=== PATIENT | male | born 1990 | race Caucasian/White ===

== ENCOUNTER → 2020-11-28 | Outpatient (CLI) | payer OTHER | END | disposition home or self-care (01) | LOC: STAR 08:58 | PROVIDERS: ATTEND Otolaryngology | DX: Z20.822 Contact with and (suspected) exposure to COVID-19 (principal) | CPT/HCPCS: U0003; U0005 ==

== ENCOUNTER 2020-12-04 12:45 | Day surgery (SDC) | payer OTHER ==
[~2020-12-04] VITALS: Ht 182.9 cm; Wt 75.8 kg
[~2020-12-04 12:45] MED LIST: BACITRACIN OINT 500U/GM, 15 GM ONE; EPINEPHRINE 1 MG/ML, 1ML ONE; EPINEPHRINE TOPICAL SOLN 1 MG/ML, 30ML ONE; FLUORESCEIN SODIUM 500 MG/5 ML ONE; LIDOCAINE/PF 1%, 30ML ONE; OXYMETAZOLINE NASAL SPRAY 0.05%,30ML ONE
[2020-12-04 13:40] VITALS: BP 112/76
[2020-12-04] MEDS ORDERED: CHLORHEXIDINE 15 ML UDC ONE (13:44)
[2020-12-04] MEDS ORDERED: CHLORHEXIDINE 15 ML UDC PO ONE (14:00)
[2020-12-04] MEDS ORDERED: LACTATED RINGERS 1,000 ML IV SCH (14:00)
[2020-12-04] MEDS ORDERED: MIDAZOLAM 1 MG/ML, 2ML ONE (14:09)
[2020-12-04] MEDS ORDERED: FENTANYL PF 250 MCG/5ML ONE (14:09)
[2020-12-04] MEDS ORDERED: PROPOFOL 10 MG/ML, 20ML ONE (14:16)
[2020-12-04] MEDS ORDERED: CEFAZOLIN 1,000 MG ONE (14:16)
[2020-12-04] MEDS ORDERED: SUCCINYLCHOLINE 20 MG/ML, 10ML ONE (14:16)
[2020-12-04] MEDS ORDERED: ONDANSETRON 2MG/ML, 2ML ONE (14:16)
[2020-12-04] MEDS ORDERED: DEXAMETHASONE 4 MG/ML, 1ML ONE (14:16)
[2020-12-04] MEDS ORDERED: BUPIVACAINE/PF 0.25% ONE (14:58)
[2020-12-04] MEDS ORDERED: EPINEPHRINE 1 MG/ML, 1ML ONE (14:58)
[2020-12-04] MEDS ORDERED: MEPERIDINE/PF 25MG/0.5ML IVPush PRN (15:00)
[2020-12-04] MEDS ORDERED: PROMETHAZINE 25 MG/ML, 1ML IVPush PRN (15:00)
[2020-12-04] MEDS ORDERED: ONDANSETRON 2MG/ML, 2ML IVPush PRN (15:00)
[2020-12-04] MEDS ORDERED: OXYcodone 5 MG/5 ML ORAL.SOL UDC PO PRN (15:00)
[2020-12-04] MEDS ORDERED: ACETAMINOPHEN 325 MG TABLET PO PRN (15:00)
[2020-12-04] MEDS ORDERED: MEPERIDINE/PF 25MG/ML,1ML ONE (16:31)
[2020-12-04] MEDS ORDERED: FENTANYL PF 100 MCG/2ML ONE ×2 (16:31→17:21)
[2020-12-04] MEDS ORDERED: LORazepam 2 MG/ML, 1ML ONE (16:34)
[2020-12-04] MEDS: FENTANYL PF 100 MCG/2ML IV PRN ×4 (16:38→17:38)
[2020-12-04] MEDS ORDERED: HYDROmorphone 1 MG/ML, 1ML INJ ONE ×2 (16:38→17:24)
[2020-12-04] MEDS: HYDROmorphone 1 MG/ML, 1ML INJ IVPush PRN ×4 (16:43→17:27)
[2020-12-04] MEDS ORDERED: OXYcodone 5 MG/5 ML ORAL.SOL UDC ONE (16:58)
[2020-12-04] MEDS ORDERED: ACETAMINOPHEN 650 MG/20.3 ML UDC ONE (16:58)
[2020-12-04] MEDS ORDERED: DIAZEPAM 5 MG/ML, 2ML ONE (17:14)
[2020-12-04] MEDS: DIAZEPAM 5 MG/ML, 2ML IVPush PRN ×2 (17:22→17:32)
== END 2020-12-04 19:50 | disposition home or self-care (01) ==
LOC: SDC 12:45 → EDSTATUS 14:30 → SDC 19:50
PROVIDERS: ATTEND Otolaryngology
DX: T84.84XA Pain due to internal orthopedic prosthetic devices, implants and grafts, initial encounter (principal); J32.0 Chronic maxillary sinusitis; Z79.899 Other long term (current) drug therapy; Y83.8 Other surgical procedures as the cause of abnormal reaction of the patient, or of later complication, without mention of misadventure at the time of the procedure
CPT/HCPCS: 20680; 31256; 88304; J0171; J0330; J0690; J1100; J1170; J2175; J2250; J2405; J2704; J3010; J3360; J7120

== ENCOUNTER 2020-12-04 20:32 | Emergency (ER) | payer OTHER ==
[~2020-12-04] VITALS: Ht 182.9 cm; Wt 84.6 kg
[2020-12-04] MEDS ORDERED: LORazepam 2 MG/ML, 1ML ONE (20:34)
--- NOTE | 2020-12-04 20:52 | NUR ---
Patient presents to ER as a "code 250." Patient was d/c from this hospital within the last hour after having sinus surgery. Same day surgery RN accompanied patient to ER stating they received a call from patient's girlfriend stating patient vomited dark red blood on their way home so they turned around to come back. BS 127. IV initiated and ativan admin. Patient became AAOx4, GCS 15. States he was d/c and gone from the hospital <20 minutes; he vomited dark red blood approx [address] and became lethargic.
--- NOTE | 2020-12-04 20:52 | NUR ---
JAMES RUIZ ([facility]) [phone]
[2020-12-04] MEDS ORDERED: LORazepam 2 MG/ML, 1ML IVPush ONE (21:00)
[2020-12-04 21:06] LABS: BASOPHILS % (AUTO) 0 % (0-1); EOSINOPHILS % (AUTO) 0 % (1-7); LYMPHOCYTES % (AUTO) 8 % (22-44); MEAN CORPUSCULAR HEMOGLOBIN 29.8 pg (27.5-34.5); MEAN CORPUSCULAR HGB CONC 32.9 g/dL (33.2-36.2); MEAN PLATELET VOLUME 9.1 fL (7.4-10.4); MONOCYTES % (AUTO) 1 % (2-9); NEUTROPHILS % (AUTO) 90 % (42-75); PLATELET COUNT 262 x10^3/uL (130-400); RED BLOOD COUNT 5.26 x10^6/uL (4.38-5.82); RED CELL DISTRIBUTION WIDTH 13.2 % (9.4-14.8)
--- NOTE | 2020-12-04 21:09 | NUR ---
REPORT RECEIVED, POC DISCUSSED, CARE ASSUMED. PT RESTING QUIETLY, S.O AT BEDSIDE. LAB RESULTS PENDING.
[2020-12-04 21:11] LABS: ALANINE AMINOTRANSFERASE 19 U/L (12-78); ALBUMIN 4.4 g/dL (3.4-5.0); ANION GAP 9 mmol/L (5-15); CALCIUM 9.5 mg/dL (8.5-10.1); CHLORIDE 104 mmol/L (98-107); CREATININE 1.26 mg/dL (0.7-1.3)
--- NOTE | 2020-12-04 21:12 | NUR ---
Report given to ABRAHAM Harry. Patient care transferred.
--- NOTE | 2020-12-04 21:14 | NUR ---
O2 ON AT 3LM NC.
[2020-12-04 21:15] LABS: ALKALINE PHOSPHATASE 45 U/L (45-117); BILIRUBIN,TOTAL 0.9 mg/dL (0.2-1.0); TOTAL PROTEIN 7.8 g/dL (6.4-8.2)
--- NOTE | 2020-12-04 22:11 | NUR ---
PT DC'D HOME WITH RX X 1 AND UNDERSTANDING OF INSTRUCTIONS. PT TO DC DESK BY W/C ACCOMPANIED BY .SO.
[2020-12-04 22:13] VITALS: BP 102/45
== END 2020-12-04 22:19 | disposition home or self-care (01) ==
LOC: ED 21:10
DX: S05.12XA Contusion of eyeball and orbital tissues, left eye, initial encounter (principal); F41.0 Panic disorder [episodic paroxysmal anxiety]; R11.10 Vomiting, unspecified; Z87.891 Personal history of nicotine dependence; X58.XXXA Exposure to other specified factors, initial encounter; Y93.89 Activity, other specified; Y92.89 Other specified places as the place of occurrence of the external cause; Y99.8 Other external cause status
CPT/HCPCS: 36415; 80053; 85025; 96374; 99283; J2060; 96372

== ENCOUNTER 2020-12-11 07:32 | Day surgery (SDC) | payer OTHER ==
[~2020-12-11] VITALS: Ht 182.9 cm; Wt 75.9 kg
[~2020-12-11 07:32] MED LIST changes: -BACITRACIN OINT 500U/GM, 15 GM ONE; -EPINEPHRINE 1 MG/ML, 1ML ONE; -EPINEPHRINE TOPICAL SOLN 1 MG/ML, 30ML ONE; -FLUORESCEIN SODIUM 500 MG/5 ML ONE; +LIDOCAINE 4%, 4 ML SYR/CANN TP ONE; -LIDOCAINE/PF 1%, 30ML ONE
[2020-12-11 08:00] VITALS: BP 107/71
[2020-12-11] MEDS ORDERED: HYDR-3241 PO (08:03)
== END 2020-12-11 09:35 | disposition home or self-care (01) ==
LOC: OUT 07:32
PROVIDERS: ATTEND Otolaryngology
DX: J32.0 Chronic maxillary sinusitis (principal); B48.8 Other specified mycoses; Z20.822 Contact with and (suspected) exposure to COVID-19
CPT/HCPCS: 87635